=== PATIENT | female | born 1980 | race Caucasian/White ===

== ENCOUNTER 2016-12-15 10:54 | Observation (INO) | payer OTHER ==
[~2016-12-15] VITALS: Ht 172.7 cm; Wt 80.4 kg
--- NOTE | 2016-12-15 16:52 | ED NURSING NOTES ---
Clinical Report - Nurses [place] [address] [place] [address] 12/15/2016 10:56 [id number] Triage time 11:05. Acuity: LEVEL 3. Chief Complaint: VAGINAL BLEED. Alert. HUGO COMA SCORE: Hugo Coma Scale: 15- eyes open spontaneously (4); best verbal response- oriented x 4 (5); best motor response- obeys commands (6). --11:09 Ramila Manriquez R.N. 11:05 12/15/16. BP: 112/67. HR: 86. RR: 18. O2 saturation: 100% on room air. Temp: 97.5 F (oral). Pain level now: 5/10. --11:09 Ramila Manriquez R.N. Weight: 83.9 kg. Height/Length: 68 inches. BMI: 28.1. --11:08 Ramila Manriquez R.N. Medications None. --11:06 Ramila Manriquez R.N. Medication/allergy information source: the patient. --11:09 Ramila Manriquez R.N. Allergies No Known Drug Allergy. --11:07 Ramila Manriquez R.N. History Arrived by private vehicle. Historian: patient. Primary physician (Ximena). ( positive test on Saturday, now bleeding, had US in clinic, thinks she passed POC this morning). PAST MEDICAL HX: Last normal menstrual period was 3 weeks ago. 2. SOCIAL HX: Light tobacco smoker- less than 1/2 a pack per day. No alcohol use or drug use. FALL RISK ASSESSMENT: Fall risk assessment completed. No fall risk identified. FUNCTIONAL ASSESSMENT: Functional assessment: no impairments noted. LEARNING NEEDS ASSESSMENT: The learning needs assessment revealed no barriers. --11:09 Ramila Manriquez R.N. PAST MEDICAL HX: Last normal menstrual period- Oct 2016. --12:26 Ramila Manriquez R.N. PROBLEMS: Dysfunctional Uterine Bleeding. --11:07 Ramila Manriquez R.N. ADDITIONAL SURGERIES: no known surgeries. Assessment GENERAL / NEURO / PSYCH: Alert. Oriented X 4. Appears in no acute distress. Patient appears calm and cooperative. RESPIRATORY: Respirations not labored. SKIN: Skin is warm and dry. --11:09 Ramila Manriquez R.N. Interventions ID band on patient. To treatment room. --11:09 Ramila Manriquez R.N. PHYSICAL ASSESSMENT 11:12/15/16. Ambulatory to room. Patient gowned. GENERAL / NEURO / PSYCH: The patient is awake and alert, is oriented and cooperative and appears uncomfortable. She has good eye contact. RESPIRATORY: Respirations not labored. SKIN: Skin is warm and dry. --11:10 Ramila Manriquez R.N. NURSING PROGRESS NOTES 11:12/15/16. Pulse oximeter and NIBP monitor placed on patient. Patient gowned. Head of bed elevated. Call light placed in reach. Side rails up x 1. Bed placed in lowest position. Brakes of bed on. --11:10 Ramila Manriquez R.N. 11:12/15/2016 Site #1 started via IV in the right antecubital space with an 20g angiocath, with aseptic technique and good blood return; one attempt. Blood drawn: rainbow set. Labeled in the presence of the patient and sent to the lab. Saline lock flushed with 10 mL saline (Blood Banded). --11:26 Ramila Manriquez R.N. 11:55 12/15/16. The patient is calm. Overall patient status is the same- she states feels the same. GI / : Moderate vaginal bleeding present with clots (large clot, states 5 pads in 4 hours...soaked). SKIN: Skin is warm and dry. --11:55 Ramila Manriquez R.N. 11:55 12/15/16. BP: 97/71. HR: 89. RR: 18. O2 saturation: 100% on room air. --11:56 Ramila Manriquez R.N. 12:26 12/15/16. BP: 97/61. HR: 95. RR: 18. O2 saturation: 99% on room air. --12:28 Ramila Manriquez R.N. 12:27 12/15/16. The patient is resting quietly. Overall patient status is the same- she states feels the same (denies need for a pad change at this time). SKIN: Skin is warm and dry. --12:28 Ramila Manriquez R.N. 13:00. Cable Supervisor provided for the pelvic exam by the physician. PELVIC EXAM: Pelvic exam performed by ED physician. --13:17 Barbara Johnson 13:24 12/15/16. BP: 112/71. HR: 95. RR: 18. O2 saturation: 100%. --13:25 Ramila Manriquez R.N. 13:25 12/15/16. Reassessment after procedure. She is calm and resting quietly. Overall patient status is the same- she states feels the same. SKIN: Skin is warm and dry. --13:25 Ramila Manriquez R.N. 1420 - 1430. Reassessment after procedure. She is calm. Overall patient status is the same- she states feels the same (assisted pt to change pads again, fresh pad placed on the bed, floor cleaned). GI / : Moderate vaginal bleeding present, consisting of bright red blood with clots (continues to pass large clots). SKIN: Skin is warm and dry. --14:35 Ramila Manriquez R.N. 15:15. The patient is calm and resting quietly. Overall patient status is the same- she states feels the same (asked if she could drink some water and she was advised to wait until it was determined if she would need any procedures done, she agreed). SKIN: Skin is warm and dry. --15:17 Ramila Manriquez R.N. 15:29 US @ bedside. --15:30 Ramila Manriquez R.N. 16:00 12/15/16. BP: 86/56 (regular adult cuff) taken on the right arm, via an automated monitor, while lying. HR: 86. RR: 18. O2 saturation: 99% on room air. Temp: 98.2 F (oral). Pain level now: 02/08. --16:25 Viky Pichardo R.N. Reassurance given. Reassessment after procedure. She is calm and resting quietly. Overall patient status is the same- she states feels the same. ( Pt just finished with US, BP in the 80"s denies any dizziness, just states "feel drained" IV ordered and infusing). GI / : Denies abdominal pain, nausea, diarrhea or difficulty with urination. Normal bowel sounds. No abdominal distention. Moderate vaginal bleeding present with clots. Greater than 4 pads per hour. SKIN: Skin is warm and dry. Skin color within normal limits. Two patient identifiers checked. Call light placed in reach. Side rails up x 1. Bed placed in lowest position. Brakes of bed on. Brakes of chair on. --16:25 Viky Pichardo R.N. 16:26 12/15/2016 Started bag #1 1000 mL IV Fluids IV NS (Saline); bolus of 500 mL over 30 minute(s) via site #1 via IV pump. Allergies verified and confirmed 5 rights. IV patency established. IV site checked: no pain, redness, or swelling. IV flushed thoroughly pre- and post-medication administration. --16:26 Viky Pichardo R.N. 16:54 12/15/2016 IV Fluids IV NS via IV site #1 Rate Changed: bag #1 500 mL/hr via IV pump. IV patency established. IV site checked: no pain, redness, or swelling. IV flushed thoroughly. --16:54 Shannan Ortiz R.N. Reassurance given. Reassessment after fluids administered. She is calm and resting quietly. Overall patient status is improved- she states feels the same. --17:01 Viky Pichardo R.N. 16:45 12/15/16. BP: 112/70 (regular adult cuff) taken on the left arm, via an automated monitor, while lying. HR: 85. RR: 12. O2 saturation: 100%. Pain level now: 03/11. --17:01 Viky Pichardo R.N. Patient gowned. Patient hygiene performed. Changed patient gown and linens. Pads changed x5. Warming measures performed. Reassurance given. Assisted patient. The patient is calm. Overall patient status is improved- she states feels the same. ( Dr. Ledesma at bedside, pt being admitted, awaiting on orders.). GI / : Denies abdominal pain, nausea or difficulty with urination. Abdomen soft and nontender. Abnormal bowel sounds. Profuse vaginal bleeding present, consisting of bright red blood. Greater than 4 pads per hour. SKIN: Skin is warm and dry. Skin color within normal limits. Two patient identifiers checked. Call light placed in reach. Side rails up x 2. Bed placed in lowest position. Brakes of bed on. Brakes of chair on. --17:50 Viky Pichardo R.N. 17:30 12/15/16. BP: 106/64 (regular adult cuff) taken on the left arm, via an automated monitor, while sitting. HR: 87. RR: 15. O2 saturation: 100%. Pain level now: 02/08. --17:50 Viky Pichardo R.N. 18:00 12/15/16. BP: 87/48 (regular adult cuff) taken on the left arm, while lying. HR: 87. RR: 15. O2 saturation: 100% on room air. Temp: 98.2 F (oral). Pain level now: 02/08. --18:28 Viky Pichardo R.N. Reassurance given. ( Pt BP noted to be 87's before transferring to CCU, MD Ledesma aware, H&H being sent off as ordered and IV fluids bolus 500ml infusing). Care transferred and report given (TO ROSANNA Cordova). --18:28 Viky Pichardo R.N. 18:28 12/15/2016 Started IV Fluids IV NS (Saline); bolus of 500 mL over 30 minute(s) via site #1 --18:28 Viky Pichardo R.N. DISPOSITION / DISCHARGE Departure time: 1845 PM. Condition at departure: improved and stable. Admitted to the Critical Care Unit (301). Transported via stretcher by nurse. Report was given to a nurse via a phone call. Report included patient's care, treatment, medications, reviewed medication reconcilliation, and condition (including any recent changes or anticipated changes). (ROSANNA Cordova). ( Report updated to ROSANNA Cordova, transferred safely to unit, IV site intact with fluids infusing). Patient's personal items include: cell phone; items were placed in belongings bag, given to the patient and spouse and transported with the patient. FALL RISK ASSESSMENT: Fall risk assessment completed. No fall risk identified. --18:59 Viky Pichardo R.N. 18:30 12/15/16. BP: 91/62 (regular adult cuff) taken on the left arm, via an automated monitor, while lying. HR: 87. RR: 15. O2 saturation: 100%. Temp: 98.2 F. Pain level now: 02/08. --18:59 Viky Pichardo R.N. 18:44 12/15/2016 Site #1; patent, infusing well and no signs of infection or infiltration. Line flushed with saline. Poor blood return present. --19:00 Viky Pichardo R.N. Locked/Released at 12/15/2016 19:00 by Viky Pichardo R.N.
--- NOTE | 2016-12-15 16:52 | ED ORDER SUMMARY ---
..... Patient: GAGAN HAHN OrderSheet [facility] VisitID: [id number] [place] [address] 36y, F Registration Date/Time: 12/15/2016 ORDER SHEET Weight: 83.9 kg Allergies: No Known Drug Allergy GENERAL ORDERS: CBC w Diff Urgent (11:12/15/2016 Jack SWANN) (Ack 11:22 Doyle) (11:26 Sarah R.N.) CMP Urgent (11:12/15/2016 Jack WSANN) (Ack 11:22 Doyle) (11:26 Sarah R.N.) UA-Culture if indicated Urgent (11:12/15/2016 Jack SWANN) (Ack 11:22 Doyle) (14:59 Sarah R.N.) PT with INR Urgent (11:12/15/2016 Jack SWANN) (Ack 11:22 Doyle) (11:26 Sarah R.N.) PTT Urgent (11:12/15/2016 Jack SWANN) (Ack 11:22 Doyle) (11:26 Sarah R.N.) Amylase Urgent (11:12/15/2016 Jack SWANN) (Ack 11:22 Doyle) (11:26 Sarah R.N.) Lipase Urgent (11:12/15/2016 Jack SWANN) (Ack 11:22 Doyle) (11:26 Sarah R.N.) Urine Urgent (11:12/15/2016 Jack SWANN) (Ack 11:22 Doyle) (14:59 Sarah R.N.) GC/Chlamydia (Cervix) (cervix) Urgent (11:12/15/2016 Jack SWANN) (Ack 11:22 Doyle) (18:00 EHassan R.N.) Wet Prep (Cervix) (cervix) Urgent (11:12/15/2016 Jack SWANN) (Ack 11:22 Doyle) (18:00 EHassan R.N.) Pelvic Exam Setup (11:12/15/2016 Jack SWANN) (Ack 11:22 Doyle) (11:26 Sarah R.N.) Serum Quantitative Urgent (12:39 12/15/2016 Jack SWANN) (Ack 12:57 RKaruga) (14:23 Sarah R.N.) Type & Rh Urgent (12:39 12/15/2016 Jack SWANN) (Ack 12:57 [place]) (14:23 Sarah R.N.) US OB 1st Trimester w Transvag (October 2016) Urgent (14:54 12/15/2016 Jack SWANN) (Ack 15:02 Doyle) (15:40 EHkarenn R.N.) Hgb/Hct Urgent (14:58 12/15/2016 Jack SWANN) (Ack 15:03 RKciprianouga) (15:13 Sarah R.N.) Type & Screen Urgent (17:46 12/15/2016 Jack SWANN) (Ack 17:52 RKaruga) (18:17 EHassan R.N.) Hgb/Hct Urgent (18:18 12/15/2016 EHsiddharth R.N. verbal order read back to Jack SWANN) (Ack 18:21 [place]) (18:29 EHassan R.N.) MEDICATION ORDERS: IV FLUIDS: IV Saline Lock (11:17 12/15/2016 Jack SWANN) (11:26 Sarah R.N.) IV NS : initial bolus 500 mL (1000 mL/hr), then 500 mL/hr for X1 (NOW) (16:15 12/15/2016 Nestor R.N. verbal order read back to Jack SWANN) (16:26 EHkarenn R.N.) IV NS : initial bolus 500 mL (1000 mL/hr), then none - for X1 (NOW) (18:16 12/15/2016 Nestor R.N. verbal order read back to Jack SWANN) (18:28 EHsiddharth R.N.) ORDER SHEET NOTES: [Electronically signed by Viky Pichardo R.N. (19:00 12/15/2016)] [Electronically signed by Francesco Ledesma MD (19:28 12/15/2016)] [Electronically locked/signed by Viky Pichardo R.N. (19:00 12/15/2016)Zen
--- NOTE | 2016-12-15 16:52 | ED CLINICAL REPORT ---
Clinical Report - Physicians/Mid Levels [facility] [address] [place] [address] 12/15/2016 10:56 Patient: GAGAN HAHN Time Seen: 12:43. Arrived- By private vehicle. Historian- patient. HISTORY OF PRESENT ILLNESS Chief Complaint: VAGINAL BLEEDING. This started today and still present. It was abrupt in onset and has been intermittent and waxing/waning. The symptoms are described as moderate. The patient has had mild pelvic pain and abnormal bleeding. No pain with urination, urinary frequency or urgency of urination. Last normal menstrual period- Oct 2016. 3. Para 2. Receiving care. REVIEW OF SYSTEMS No chills, fever, muscle aches, sweats or calf pain. No chest pain, cough, difficulty breathing, pedal edema or palpitations. No abdominal pain, black stools, bloody stools, constipation or diarrhea. No nausea, vomiting or urinary problems. All systems otherwise negative, except as recorded above. PAST HISTORY ( PCP - None Ob - Gran). Problems: Dysfunctional Uterine Bleeding. Additional Surgeries: no known surgeries. Medications: None. Allergies: No Known Drug Allergy. SOCIAL HISTORY Current every day light tobacco smoker (cigarette)- less than 1/2 a pack per day. No alcohol use or drug use. FAMILY HISTORY Denies family medical history. ADDITIONAL NOTES The nursing notes have been reviewed. PHYSICAL EXAM Vital Signs: 12/15/2016 11:05 BP: 112/67. HR: 86. RR: 18. O2 saturation: 100%. Temp: 97.5 F. Pain level now: 5/10. Have been reviewed. Appearance: Alert. No acute distress. ENT: Pharynx normal. Neck: Neck supple. CVS: Heart sounds normal. Respiratory: No respiratory distress. Breath sounds normal. Abdomen: Soft and nontender. Bowel sounds normal. No organomegaly. No mass. Back: Normal external inspection. No CVA tenderness. : Profuse vaginal bleeding, consisting of bright red blood, with clots, via the cervical os. No tenderness present on bimanual exam. Enlarged uterus- 10 wk size. No tenderness with movement of the cervix. Skin: Skin warm and dry. Normal skin color. Normal skin turgor. Extremities: Extremities nontender. No calf tenderness. No lower extremity edema. LABS, X-RAYS, AND EKG EKG: No acute process. Rate: 65. Prior EKG unavailable. The study has been independently viewed by me. Pelvic Sonogram: there was a small cystic structure in the lower uterine segment with no evidence of a pole or cardiac activity noted there is also a small cystic structure noted near the fundus approximately 5-1/2 mm in diameter with a small central area echogenic area of uncertain significance. If this is a pole it would be consistent with approximately 6 weeks and 2 days gestation. The study was interpreted contemporaneously by me and discussed with the radiologist. Laboratory Tests: UA-Culture if indicated: (KIKA: 12/15/2016 13:00) ( MsgRcvd 12/15/2016 13:45) Final results Test Result Flag Units (Reference) URINE COLOR YELLOW URINE APPEARANCE CLEAR URINE GLUCOSE NEGATIVE (NEGATIVE) URINE BILIRUBIN NEGATIVE (NEGATIVE) URINE KETONE NEGATIVE (NEGATIVE) URINE SPECIFIC GRAVITY 1.020 (1.010-1.030) URINE PH 6.5 (5.0-8.0) URINE PROTEIN NEGATIVE (NEGATIVE) URINE UROBILINOGEN 0.2 EU/dL (0.2-1.0) URINE NITRITE NEGATIVE (NEGATIVE) URINE BLOOD 2+ (NEGATIVE) URINE LEUK ESTERASE NEGATIVE (NEGATIVE) URINE RBC 1-3 rbc/hpf (0-1) URINE WBC 1-3 wbc/hpf (0-1) URINE EPITHELIAL CELLS 3-5 EPI/hpf (0-5) URINE BACTERIA NONE SEEN (NONE SEEN) URINE COMMENT CULT NOT INDICATED URINE CULTURES ARE SET-UP BASED ON THE FOLLOWING CRITERIA:POSITIVE NITRITEPOSITIVE LEUKOCYTE ESTERASEGREATER THAN 10 WHITE BLOOD CELLSMODERATE (2+) OR GREATER BACTERIA Hgb/Hct: (KIKA: 12/15/2016 18:25) ( [facility] [place] 12/15/2016 18:42) Final results Test Result Flag Units (Reference) HEMOGLOBIN 10.9 L gm/dL (12.0-16.0) HEMATOCRIT 32.3 L % (36.0-46.0) Hgb/Hct: (KIKA: 12/15/2016 15:05) ( [facility] 12/15/2016 15:16) Final results Test Result Flag Units (Reference) HEMOGLOBIN 12.5 gm/dL (12.0-16.0) HEMATOCRIT 38.0 % (36.0-46.0) CBC w Diff: (KIKA: 12/15/2016 11:15) ( [facility] 12/15/2016 11:39) Final results Test Result Flag Units (Reference) WHITE BLOOD COUNT 8.9 K/uL (4.5-11.5) RED BLOOD COUNT 4.18 M/uL (4.00-5.20) HEMOGLOBIN 12.5 gm/dL (12.0-16.0) HEMATOCRIT 37.5 % (36.0-46.0) MEAN CELL VOLUME 90 fL (80-100) MEAN CORPUSCULAR HGB 30 pg (26-34) MEAN CORPUSCULAR HGB CONC 33 g/dL (31-37) RED CELL DISTRIBUTION WIDTH 13.4 % (11.6-14.8) PLATELET COUNT 241 K/uL (150-400) NEUTROPHIL % 70.6 % (50-75) LYMPH % 20.3 L % (25-40) MONO % 6.8 % (3-14) EOSINOPHIL % 1.9 % (0-4) BASOPHIL % 0.4 % (0-2) PT with INR: (KIKA: 12/15/2016 11:15) ( [facility] 12/15/2016 11:50) Final results Test Result Flag Units (Reference) INR 0.9 (0.8-1.2) Low Intensity Therapy: INR 1.5-2.0 PT range 18.5-23.1Mod.Intensity Therapy: INR 2.0-3.0 PT range 23.1-31.5High Intensity Therapy: INR 2.5-3.5 PT range 27.4-35.5High Intensity Therapy 2: INR 3.0-4.0 PT range 31.5-39.3 APTT 28 SECONDS (24-34) Serum Quantitative: (KIKA: 12/15/2016 11:15) ( MsgRcvd 12/15/2016 13:31) Final results Test Result Flag Units (Reference) BETA HCG, QUANTITATIVE 60033 mIU/mL REFERENCE RANGE:Adult Males: <2 mIU/mLNon- Females: <6 mIU/mL Females:Approximate Approximate hCGGestational Age Range (mIU/mL) 0-1 week 0-501-2 weeks 40-3002-3 weeks 100-54259-6 weeks 500-78540-4 months 5,000-200,0002-3 months 10,000-100,0002nd trimester 3,000-50,0003rd trimester 1,000-50,000 CMP: (KIKA: 12/15/2016 11:15) ( MsgRcvd 12/15/2016 11:53) Final results Test Result Flag Units (Reference) GLUCOSE 113 H mg/dL (70-110) BUN 15 mg/dL (7-18) CREATININE 0.7 mg/dL (0.6-1.3) Estimated GFR >60 mL/min Estimated GFR- >60 mL/min Note: Persistent reduction over 3 months in eGFR<60 mL/min/1.73 m2 defines CKD. Patients with eGFR values>=60 mL/min/1.73 m2 may also have CKD if evidence ofpersistent proteinuria. Additional information may be foundat www.kidney.org. SODIUM 138 mmol/L (136-145) POTASSIUM 3.9 mmol/L (3.5-5.1) CHLORIDE 107 mmol/L (98-107) CARBON DIOXIDE 23 mmol/L (21-32) CALCIUM 8.4 L mg/dL (8.5-10.1) TOTAL PROTEIN 7.0 g/dL (6.4-8.2) ALBUMIN 3.6 g/dL (3.3-5.0) BILIRUBIN, TOTAL 0.5 mg/dL (0.0-1.0) ALKALINE PHOSPHATASE 49 U/L (46-116) AST (SGOT) 9 L U/L (15-37) ALT (SGPT) 24 U/L (12-78) LIPASE 192 U/L (73-393) AMYLASE 38 U/L (25-115) Wet Prep: (KIKA: 12/15/2016 13:00) ( [facility] 12/15/2016 13:34) Final results SPECIMEN DESCRIPTION: CERVIX Test Result Flag Units (Reference) WET MOUNT CLUE CELLS:: NONE EPITHELIAL CELLS: NONE -- SOURCE?: CERVIX WHITE BLOOD CELLS: FEW TRICHOMONAS:: NONE -- YEAST:: NONE Type & Screen: (KIKA: 12/15/2016 11:50) ( [facility] 12/15/2016 18:59) Final results Test Result Flag Units (Reference) PATIENT BLOOD TYPE AB Positive ANTIBODY SCREEN NEGATIVE Type & Rh: (KIKA: 12/15/2016 11:15) ( [facility] 12/15/2016 13:11) Final results Test Result Flag Units (Reference) PATIENT BLOOD TYPE AB Positive . PROGRESS AND PROCEDURES Consult obtained from [facility]. Dr. Bueno. Case discussed. Consultation performed in ED. Patient/family counseled. Old medical records ordered. Old records unavailable. Disposition: Admitted. Observation. CLINICAL IMPRESSION Threatened . (Electronically signed by Francesco Ledesma MD 12/15/2016 19:28)
--- NOTE | 2016-12-15 16:52 | ED ORDER SUMMARY ---
..... Patient: GAGAN HAHN OrderSheet [facility] VisitID: [id number] [place] [address] 36y, F Registration Date/Time: 12/15/2016 ORDER SHEET Weight: 83.9 kg Allergies: No Known Drug Allergy GENERAL ORDERS: CBC w Diff Urgent (11:12/15/2016 Jack SWANN) (Ack 11:22 Doyle) (11:26 Sarah R.N.) CMP Urgent (11:12/15/2016 Jack SWANN) (Ack 11:22 Doyle) (11:26 Sarah R.N.) UA-Culture if indicated Urgent (11:12/15/2016 Jack SWANN) (Ack 11:22 Doyle) (14:59 Sarah R.N.) PT with INR Urgent (11:12/15/2016 Jack SWANN) (Ack 11:22 Doyle) (11:26 Sarah R.N.) PTT Urgent (11:12/15/2016 Jack SWANN) (Ack 11:22 Doyle) (11:26 Sarah R.N.) Amylase Urgent (11:12/15/2016 Jack SWANN) (Ack 11:22 Doyle) (11:26 Sarah R.N.) Lipase Urgent (11:12/15/2016 Jack SWANN) (Ack 11:22 Doyle) (11:26 Sarah R.N.) Urine Urgent (11:12/15/2016 Jack SWANN) (Ack 11:22 Doyle) (14:59 Sarah R.N.) GC/Chlamydia (Cervix) (cervix) Urgent (11:12/15/2016 Jack SWANN) (Ack 11:22 Doyle) (18:00 EHassan R.N.) Wet Prep (Cervix) (cervix) Urgent (11:12/15/2016 Jack SWANN) (Ack 11:22 Doyle) (18:00 EHassan R.N.) Pelvic Exam Setup (11:12/15/2016 Jack SWANN) (Ack 11:22 Doyle) (11:26 Sarah R.N.) Serum Quantitative Urgent (12:39 12/15/2016 Jack SWANN) (Ack 12:57 RKaruga) (14:23 Sarah R.N.) Type & Rh Urgent (12:39 12/15/2016 Jack SWANN) (Ack 12:57 [place]) (14:23 Sarah R.N.) US OB 1st Trimester w Transvag (October 2016) Urgent (14:54 12/15/2016 Jack SWANN) (Ack 15:02 Doyle) (15:40 EHkarenn R.N.) Hgb/Hct Urgent (14:58 12/15/2016 Jack SWANN) (Ack 15:03 RKciprianouga) (15:13 Sarah R.N.) Type & Screen Urgent (17:46 12/15/2016 Jack SWANN) (Ack 17:52 RKaruga) (18:17 EHassan R.N.) Hgb/Hct Urgent (18:18 12/15/2016 EHsiddharth R.N. verbal order read back to Jack SWANN) (Ack 18:21 [place]) (18:29 EHassan R.N.) MEDICATION ORDERS: IV FLUIDS: IV Saline Lock (11:17 12/15/2016 Jack SAWNN) (11:26 Sarah R.N.) IV NS : initial bolus 500 mL (1000 mL/hr), then 500 mL/hr for X1 (NOW) (16:15 12/15/2016 Nestor R.N. verbal order read back to Jack SWANN) (16:26 EHkarenn R.N.) IV NS : initial bolus 500 mL (1000 mL/hr), then none - for X1 (NOW) (18:16 12/15/2016 Nestor R.N. verbal order read back to Jack SWANN) (18:28 EHsiddharth R.N.) ORDER SHEET NOTES: [Electronically signed by Viky Pichardo R.N. (19:00 12/15/2016)] [Electronically signed by Francesco Ledesma MD (19:28 12/15/2016)] [Electronically locked/signed by Viky Pichardo R.N. (19:00 12/15/2016)Zen
--- NOTE | 2016-12-15 16:52 | ED CLINICAL REPORT ---
Clinical Report - Physicians/Mid Levels [facility] [address] [place] [address] 12/15/2016 10:56 Patient: GAGAN HAHN Time Seen: 12:43. Arrived- By private vehicle. Historian- patient. HISTORY OF PRESENT ILLNESS Chief Complaint: VAGINAL BLEEDING. This started today and still present. It was abrupt in onset and has been intermittent and waxing/waning. The symptoms are described as moderate. The patient has had mild pelvic pain and abnormal bleeding. No pain with urination, urinary frequency or urgency of urination. Last normal menstrual period- Oct 2016. 3. Para 2. Receiving care. REVIEW OF SYSTEMS No chills, fever, muscle aches, sweats or calf pain. No chest pain, cough, difficulty breathing, pedal edema or palpitations. No abdominal pain, black stools, bloody stools, constipation or diarrhea. No nausea, vomiting or urinary problems. All systems otherwise negative, except as recorded above. PAST HISTORY ( PCP - None Ob - Gran). Problems: Dysfunctional Uterine Bleeding. Additional Surgeries: no known surgeries. Medications: None. Allergies: No Known Drug Allergy. SOCIAL HISTORY Current every day light tobacco smoker (cigarette)- less than 1/2 a pack per day. No alcohol use or drug use. FAMILY HISTORY Denies family medical history. ADDITIONAL NOTES The nursing notes have been reviewed. PHYSICAL EXAM Vital Signs: 12/15/2016 11:05 BP: 112/67. HR: 86. RR: 18. O2 saturation: 100%. Temp: 97.5 F. Pain level now: 5/10. Have been reviewed. Appearance: Alert. No acute distress. ENT: Pharynx normal. Neck: Neck supple. CVS: Heart sounds normal. Respiratory: No respiratory distress. Breath sounds normal. Abdomen: Soft and nontender. Bowel sounds normal. No organomegaly. No mass. Back: Normal external inspection. No CVA tenderness. : Profuse vaginal bleeding, consisting of bright red blood, with clots, via the cervical os. No tenderness present on bimanual exam. Enlarged uterus- 10 wk size. No tenderness with movement of the cervix. Skin: Skin warm and dry. Normal skin color. Normal skin turgor. Extremities: Extremities nontender. No calf tenderness. No lower extremity edema. LABS, X-RAYS, AND EKG EKG: No acute process. Rate: 65. Prior EKG unavailable. The study has been independently viewed by me. Pelvic Sonogram: there was a small cystic structure in the lower uterine segment with no evidence of a pole or cardiac activity noted there is also a small cystic structure noted near the fundus approximately 5-1/2 mm in diameter with a small central area echogenic area of uncertain significance. If this is a pole it would be consistent with approximately 6 weeks and 2 days gestation. The study was interpreted contemporaneously by me and discussed with the radiologist. Laboratory Tests: UA-Culture if indicated: (KIKA: 12/15/2016 13:00) ( MsgRcvd 12/15/2016 13:45) Final results Test Result Flag Units (Reference) URINE COLOR YELLOW URINE APPEARANCE CLEAR URINE GLUCOSE NEGATIVE (NEGATIVE) URINE BILIRUBIN NEGATIVE (NEGATIVE) URINE KETONE NEGATIVE (NEGATIVE) URINE SPECIFIC GRAVITY 1.020 (1.010-1.030) URINE PH 6.5 (5.0-8.0) URINE PROTEIN NEGATIVE (NEGATIVE) URINE UROBILINOGEN 0.2 EU/dL (0.2-1.0) URINE NITRITE NEGATIVE (NEGATIVE) URINE BLOOD 2+ (NEGATIVE) URINE LEUK ESTERASE NEGATIVE (NEGATIVE) URINE RBC 1-3 rbc/hpf (0-1) URINE WBC 1-3 wbc/hpf (0-1) URINE EPITHELIAL CELLS 3-5 EPI/hpf (0-5) URINE BACTERIA NONE SEEN (NONE SEEN) URINE COMMENT CULT NOT INDICATED URINE CULTURES ARE SET-UP BASED ON THE FOLLOWING CRITERIA:POSITIVE NITRITEPOSITIVE LEUKOCYTE ESTERASEGREATER THAN 10 WHITE BLOOD CELLSMODERATE (2+) OR GREATER BACTERIA Hgb/Hct: (KIKA: 12/15/2016 18:25) ( [facility] 12/15/2016 18:42) Final results Test Result Flag Units (Reference) HEMOGLOBIN 10.9 L gm/dL (12.0-16.0) HEMATOCRIT 32.3 L % (36.0-46.0) Hgb/Hct: (KIKA: 12/15/2016 15:05) ( [facility] 12/15/2016 15:16) Final results Test Result Flag Units (Reference) HEMOGLOBIN 12.5 gm/dL (12.0-16.0) HEMATOCRIT 38.0 % (36.0-46.0) CBC w Diff: (KIKA: 12/15/2016 11:15) ( [facility] 12/15/2016 11:39) Final results Test Result Flag Units (Reference) WHITE BLOOD COUNT 8.9 K/uL (4.5-11.5) RED BLOOD COUNT 4.18 M/uL (4.00-5.20) HEMOGLOBIN 12.5 gm/dL (12.0-16.0) HEMATOCRIT 37.5 % (36.0-46.0) MEAN CELL VOLUME 90 fL (80-100) MEAN CORPUSCULAR HGB 30 pg (26-34) MEAN CORPUSCULAR HGB CONC 33 g/dL (31-37) RED CELL DISTRIBUTION WIDTH 13.4 % (11.6-14.8) PLATELET COUNT 241 K/uL (150-400) NEUTROPHIL % 70.6 % (50-75) LYMPH % 20.3 L % (25-40) MONO % 6.8 % (3-14) EOSINOPHIL % 1.9 % (0-4) BASOPHIL % 0.4 % (0-2) PT with INR: (KIKA: 12/15/2016 11:15) ( [facility] 12/15/2016 11:50) Final results Test Result Flag Units (Reference) INR 0.9 (0.8-1.2) Low Intensity Therapy: INR 1.5-2.0 PT range 18.5-23.1Mod.Intensity Therapy: INR 2.0-3.0 PT range 23.1-31.5High Intensity Therapy: INR 2.5-3.5 PT range 27.4-35.5High Intensity Therapy 2: INR 3.0-4.0 PT range 31.5-39.3 APTT 28 SECONDS (24-34) Serum Quantitative: (KIKA: 12/15/2016 11:15) ( MsgRcvd 12/15/2016 13:31) Final results Test Result Flag Units (Reference) BETA HCG, QUANTITATIVE 54900 mIU/mL REFERENCE RANGE:Adult Males: <2 mIU/mLNon- Females: <6 mIU/mL Females:Approximate Approximate hCGGestational Age Range (mIU/mL) 0-1 week 0-501-2 weeks 40-3002-3 weeks 100-32889-8 weeks 500-96894-4 months 5,000-200,0002-3 months 10,000-100,0002nd trimester 3,000-50,0003rd trimester 1,000-50,000 CMP: (KIKA: 12/15/2016 11:15) ( MsgRcvd 12/15/2016 11:53) Final results Test Result Flag Units (Reference) GLUCOSE 113 H mg/dL (70-110) BUN 15 mg/dL (7-18) CREATININE 0.7 mg/dL (0.6-1.3) Estimated GFR >60 mL/min Estimated GFR- >60 mL/min Note: Persistent reduction over 3 months in eGFR<60 mL/min/1.73 m2 defines CKD. Patients with eGFR values>=60 mL/min/1.73 m2 may also have CKD if evidence ofpersistent proteinuria. Additional information may be foundat www.kidney.org. SODIUM 138 mmol/L (136-145) POTASSIUM 3.9 mmol/L (3.5-5.1) CHLORIDE 107 mmol/L (98-107) CARBON DIOXIDE 23 mmol/L (21-32) CALCIUM 8.4 L mg/dL (8.5-10.1) TOTAL PROTEIN 7.0 g/dL (6.4-8.2) ALBUMIN 3.6 g/dL (3.3-5.0) BILIRUBIN, TOTAL 0.5 mg/dL (0.0-1.0) ALKALINE PHOSPHATASE 49 U/L (46-116) AST (SGOT) 9 L U/L (15-37) ALT (SGPT) 24 U/L (12-78) LIPASE 192 U/L (73-393) AMYLASE 38 U/L (25-115) Wet Prep: (KIKA: 12/15/2016 13:00) ( [facility] 12/15/2016 13:34) Final results SPECIMEN DESCRIPTION: CERVIX Test Result Flag Units (Reference) WET MOUNT CLUE CELLS:: NONE EPITHELIAL CELLS: NONE -- SOURCE?: CERVIX WHITE BLOOD CELLS: FEW TRICHOMONAS:: NONE -- YEAST:: NONE Type & Screen: (KIKA: 12/15/2016 11:50) ( [facility] 12/15/2016 18:59) Final results Test Result Flag Units (Reference) PATIENT BLOOD TYPE AB Positive ANTIBODY SCREEN NEGATIVE Type & Rh: (KIKA: 12/15/2016 11:15) ( [facility] 12/15/2016 13:11) Final results Test Result Flag Units (Reference) PATIENT BLOOD TYPE AB Positive . PROGRESS AND PROCEDURES Consult obtained from [employer] [employer]. Dr. Bueno. Case discussed. Consultation performed in ED. Patient/family counseled. Old medical records ordered. Old records unavailable. Disposition: Admitted. Observation. CLINICAL IMPRESSION Threatened . (Electronically signed by Francesco Ledesma MD 12/15/2016 19:28)
[2016-12-15 18:57] VITALS: BP 106/69
--- NOTE | 2016-12-15 19:29 | ED DISCHARGE INSTRUCTIONS ---
Patient: GAGAN HAHN General Instructions [facility] VisitID: [id number] [address] [place] [address] 36y, F Registration Date/Time: 12/15/2016 Threatened . (Electronically signed by Francesco Ledesma MD 12/15/2016 19:28)
--- NOTE | 2016-12-15 19:29 | ED MED RECONCILIATION SUMMARY ---
Patient: GAGAN HAHN Medication Reconciliation Report [facility] VisitID: [id number] [address] [place] [address] 36y, F Registration Date/Time: 12/15/2016 Weight: 83.9 kg Height/Length: 68 in. BMI: 28.1 ALLERGIES: No Known Drug Allergy The patient's Home Medications are listed below: NONE. The source(s) of the original Home Medication information: patient The following Medications were given to the patient in the Emergency Department: IV NS IV Fluids bolus 500 mL over 30 minute(s), administered: 12/15/2016 4:26:00 PM IV NS IV Fluids bolus 500 mL over 30 minute(s), administered: 12/15/2016 6:28:00 PM The following Medications were prescribed to the patient: None.
--- NOTE | 2016-12-15 19:29 | ED DISCHARGE INSTRUCTIONS ---
Patient: GAGAN HAHN General Instructions [facility] VisitID: [id number] [address] [place] [address] 36y, F Registration Date/Time: 12/15/2016 Threatened . (Electronically signed by Francesco Ledesma MD 12/15/2016 19:28)
--- NOTE | 2016-12-15 19:29 | ED MAR SUMMARY ---
..... Medication Administration Record [facility] [address] [place] [address] Patient: GAGAN HAHN Visit ID: [id number] 36y, F Weight: 83.9 kg Height/Length: 68 in BMI: 28.1 ALLERGIES: No Known Drug Allergy Start 16:26 12/15/2016 Viky Pichardo RDelfinaNDelfina Medication Administered: IV NS (SALINE), Dose: IV Fluids, Bolus: 500 mL over 30 minute(s), Dispensed: 1000 mL bag, Site: #1 right AC. Medication Ordered: IV NS : initial bolus 500 mL (1000 mL/hr), then 500 mL/hr for X1 (NOW). Start 18:28 12/15/2016 Viky Pichardo R.N. Medication Administered: IV NS (SALINE), Dose: IV Fluids, Bolus: 500 mL over 30 minute(s), Site: #1 right AC. Medication Ordered: IV NS : initial bolus 500 mL (1000 mL/hr), then none - for X1 (NOW).
--- NOTE | 2016-12-15 19:29 | ED MED RECONCILIATION SUMMARY ---
Patient: GAGAN HAHN Medication Reconciliation Report [facility] VisitID: [id number] [address] [place] [address] 36y, F Registration Date/Time: 12/15/2016 Weight: 83.9 kg Height/Length: 68 in. BMI: 28.1 ALLERGIES: No Known Drug Allergy The patient's Home Medications are listed below: NONE. The source(s) of the original Home Medication information: patient The following Medications were given to the patient in the Emergency Department: IV NS IV Fluids bolus 500 mL over 30 minute(s), administered: 12/15/2016 4:26:00 PM IV NS IV Fluids bolus 500 mL over 30 minute(s), administered: 12/15/2016 6:28:00 PM The following Medications were prescribed to the patient: None.
--- NOTE | 2016-12-15 19:29 | ED MAR SUMMARY ---
..... Medication Administration Record [facility] [address] [place] [address] Patient: GAGAN HAHN Visit ID: [id number] 36y, F Weight: 83.9 kg Height/Length: 68 in BMI: 28.1 ALLERGIES: No Known Drug Allergy Start 16:26 12/15/2016 Viky Pichardo RDelfinaNDelfina Medication Administered: IV NS (SALINE), Dose: IV Fluids, Bolus: 500 mL over 30 minute(s), Dispensed: 1000 mL bag, Site: #1 right AC. Medication Ordered: IV NS : initial bolus 500 mL (1000 mL/hr), then 500 mL/hr for X1 (NOW). Start 18:28 12/15/2016 Viky Pichardo R.N. Medication Administered: IV NS (SALINE), Dose: IV Fluids, Bolus: 500 mL over 30 minute(s), Site: #1 right AC. Medication Ordered: IV NS : initial bolus 500 mL (1000 mL/hr), then none - for X1 (NOW).
[2016-12-15 20:57] VITALS: BP 102/65
[2016-12-16] VITALS (8 sets, daily range): BP systolic 80–104; BP diastolic 41–60
--- NOTE | 2016-12-16 15:59 | Provider's Discharge Care Plan ---
Problem, Goal, Plan Problem List 1. Spon w/ hemorr-complete Goals: Improve disease control Instructions: Follow up as needed
--- NOTE | 2016-12-16 15:59 | Provider's Discharge Care Plan ---
Problem, Goal, Plan Problem List 1. Spon w/ hemorr-complete Goals: Improve disease control Instructions: Follow up as needed
--- NOTE | 2016-12-17 03:15 | DISCHARGE SUMMARY ---
ADMIT DATE: 12/15/2016 DISCHARGE DATE: 12/16/2016 ADMITTING DIAGNOSIS: 1. with vaginal hemorrhage, threatened DISCHARGE DIAGNOSES: 1. Significant hemorrhage with completed PROCEDURE PERFORMED: 1. Administration of misoprostol BRIEF HISTORY: The patient was initially seen by me approximately 2 weeks ago at 8 weeks last menstrual period, showing a gestational sac of 5.4 weeks plus or minus a week and advised that it was most likely a blighted ovum or dates that were off. She returned 1 week later, approximately 1 week ago, and had a larger sac with no yolk sac or pole noted and was slightly larger at 6 weeks 4 days, plus or minus 1 week. The patient was informed of a probable embryonic gestation, but due to the desire for , she elected not to have any terminating procedure done. She called the next day or 2 and had moderate bleeding and yesterday she entered the hospital with significant bleeding. Her initial hematocrit in the emergency department was 37 and 12, hemoglobin and hematocrit, and then I was called by the emergency department physician once she had persistent hemorrhage of 50 plus mL an hour over several hours. Ultrasound was performed by Radiology showing a somewhat collapsed cyst that appeared to have entered down to the lower uterine cavity and collapsing in nature. There was also hemorrhage noted. A repeat hematocrit was essentially the same, and the patient was hydrated over several hours. Hematocrit, approximately 8 hours while under observation with several liters of hydration was a drop of hemoglobin and hematocrit of 32 and 10.5. At this point, it was decided to admit the patient for observation. HOSPITAL COURSE: The patient desired at all costs. Procedures needed to be done so even though the diagnosis was given to the patient of probable embryonic gestation with inevitable , she decided to not have any misoprostol given. She was put on observation, and at approximately 4 a.m. I was called with the report by continuous bleeding and becoming more hypotensive, even though she was not orthostatic with tachycardia. I came in to see the patient at 4 a.m. We reviewed the possibilities of DC, misoprostol and wait and see. The patient underwent a pelvic exam by me. There was a firm clot in the cervix, which was removed along with exam of the closing internal os. No tissue had been noted to this time, even though the patient states she might have passed a sac. The patient elected to have misoprostol, 800 mcg was given p.o. Over the next hour or 2, the patient had increased cramping and passage of tissue with a clot and then obviously white tissue consistent with membranes of the previous gestational sac noted. With significant decrease in bleeding, the patient elected to forego additional treatment. With observation she began to complain of dizziness, especially after given Percocet for pain caused by misoprostol administration earlier. Since the patient was lightheaded, we had a discussion about a transfusion. Initially she elected to have a transfusion and then she decided after informed consent of the possibility of problems with transfusion that she would eat food and drink fluids and minimize her use of narcotic medication for pain and use nonsteroidal anti-inflammatory drugs. DISCHARGE INSTRUCTIONS/MEDICATIONS: The patient was then monitored for several hours and blood was decreasing. The patient was able to ambulate and once again asked about a transfusion, which she declined again then requested discharge home with warnings and precautions. The patient is to follow up in 1 week which she had an appointment for already. The patient is to take p.o. nonsteroidal anti-inflammatory drugs and on narcotics.
--- NOTE | 2016-12-17 09:55 | DIAGNOSTIC IMAGING REPORT ---
PROCEDURE: US OB 1ST TRIMESTER W/TRANSVAG INDICATION: ABNORMAL BLEEDING positive test. Initial encounter TECHNIQUE: Gonzalez scale, color, and spectral Doppler transabdominal and endovaginal sonographic images of the first trimester gravid uterus were obtained. COMPARISON: Pelvic ultrasound 04/08/2016 FINDINGS: TRANSABDOMINAL SCANS: Anteverted uterus. There is a cystic collection in the lower uterine segment. Normal kidneys. TRANSVAGINAL SCANS: There is a teardrop-shaped cystic structure in the lower uterine segment measuring 2.3 cm, suggestive of a bladder. There is also a small cystic structure in the fundal portion of the uterus which appears to be submucosal in the myometrium although endometrial positioning is not excluded. There is an avascular 5.5 mm echogenic structure within the cyst, possibly a pole versus a degenerating fibroid. Para ovaries are normal in size and appearance. No evidence of an adnexal mass or free fluid. IMPRESSION: 1. 2.3 cm teardrop-shaped cystic structure in the lower uterine segment suggestive of a blighted ovum 2. Cystic structure in the fundal portion of the submucosal myometrium versus endometrium, with an avascular echogenic focus. This could represent an early versus degenerating fibroid. Recommend follow-up Beta hCG and ultrasound 3. Results discussed with Dr. Ledesma
--- NOTE | 2016-12-21 18:45 | HISTORY AND PHYSICAL ---
ADMITTED: 12/15/2016 CHIEF COMPLAINT: 1. with heavy vaginal bleeding, threatened , empty sac noted x2 HISTORY OF PRESENT ILLNESS: The patient was seen in the office. History is recounted on discharge summary. Gestational sacs at 5.4 and 6.4 weeks were noted, assessed to be a blighted ovum. The patient was concerned that she might have a normal , since she was desiring this. The patient had heavy bleeding throughout the day. She was put on observation. MEDICAL/SURGICAL HISTORY: history: Normal onset menses. Deliveries in 03/2007, 09/2008, vaginal deliveries, 8 pounds. She had a miscarriage earlier this year. Surgical history: Noncontributory. MEDICATIONS: 1. non known ALLERGIES: 1. NOT NOTED. SOCIAL HISTORY: Smokes 3 cigarettes a day. FAMILY HISTORY: Noncontributory. REVIEW OF SYSTEMS: Alert and oriented x3. Genitourinary: Purpose of admission. Gastrointestinal: Normal. Cardiovascular: No shortness of breath or chest pain. See our ED evaluation. PHYSICAL EXAMINATION: VITAL SIGNS: Stable. HEENT: Grossly intact. HEART: Regular rate and rhythm. ABDOMEN: Benign, minimal tenderness. EXTREMITIES: Normal. PELVIC: Vaginal exam, heavy bleeding, clot noted. PELVIC: Not done. RECTAL: Not done. IMPRESSION: 1. Threatened miscarriage. The patient had strong desire to keep and is unlikely to take misoprostol at this time. PLAN: Observation. Initial hematocrit dropped from 36 to 32, with some bleeding and hydration, admitted for continued observation.
== END 2016-12-16 17:40 | disposition home or self-care (01) ==
LOC: ED SRH 10:54 → TRANS SRH 17:08 → CC SRH 19:04
PROVIDERS: ADMIT Emergency Medicine
DX: O03.6 Delayed or excessive hemorrhage following complete or unspecified spontaneous abortion (principal); Z72.0 Tobacco use
CPT/HCPCS: 29242; 29246; 29263; 40021; 90001; 90004; 90074; 90100; 90155; 90195; 90197; 91004; 91162; 91163; 91227; 91228; 91544; 91556; 92132; 92235; 92530; 93070; 94001; 94060; 95059

== ENCOUNTER 2017-05-15 10:49 | Outpatient (CLI) | payer OTHER ==
--- NOTE | 2017-05-15 12:07 | DIAGNOSTIC IMAGING REPORT ---
PROCEDURE: US COMPLETE PELVIC W/TRANSVAG INDICATION: MISSED PERIRODS TECHNIQUE: Transabdominal and endovaginal langston scale and color Doppler sonographic images of the female pelvis were obtained. COMPARISON: 07/06/2016 FINDINGS: TRANSABDOMINAL SCANS: Anteverted uterus measures about 6.2 cm in length. Normal contour and echotexture. Normal adnexa without suspicious mass. The visible portion of the urinary bladder is normal. No significant free pelvic fluid. TRANSVAGINAL SCANS: The uterus is anteverted and anteflexed in position and has a homogeneous myometrial echotexture. It measures about 5.9 x 3.5 x 5.4 cm. Multiple Nabothian cysts are seen in the cervix. Normal vascularity. The endometrium is 5 mm in thickness. No endometrial fluid collections or suspicious masses. The right ovary measures 3.9 x 3.4 x 1.9 cm and has a normal follicular echotexture. There is normal arterial and venous ovarian flow present. The left ovary measures 3.2 x 1.8 x 2.4 cm and also has a normal follicular echotexture and normal vascularity. No suspicious adnexal masses or free pelvic fluid. IMPRESSION: 1. Normal pelvic ultrasound.
== END 2017-05-15 23:00 ==
LOC: US SRH 10:49
DX: N92.6 Irregular menstruation, unspecified (principal)